=== PATIENT | male | born 1960 | race Caucasian/White ===

== ENCOUNTER 2016-12-09 05:08 | Inpatient (IN) | payer OTHER ==
[~2016-12-09] VITALS: Ht 175.3 cm; Wt 110.9 kg
[2016-12-09] VITALS (16 sets, daily range): BP systolic 119–164; BP diastolic 78–107
[~2016-12-09 05:08] MED LIST: AMLODIPINE-BEN1 EAC2 PO; AMLODIPINE-BEN1 EACH PO; AMLODIPINE-VAL1 EAC3 PO; ATORVASTATIN CA80 MG PO; Aspirin E.C. PO; EFFIENT10 MG PO; ENDOCET 5-3251 EACH PO; LIPITOR80 MG PO; LOPRESSOR25 MG PO; NITROSTAT0.4 MG SL; PREDNISONE20 MG PO
[2016-12-09 05:31] LABS: POTASSIUM 4.6 mEq/L (3.7-5.4)
[2016-12-09 06:06] LABS: TROP-I INTERPRETATION NEGATIVE; TROPONIN-I 0.02 ng/mL (0.0-0.30)
[2016-12-09 06:13] LABS: AMYLASE 86 IU/L (1-118); CHLORIDE 110 mEq/L (99-109); POTASSIUM 3.3 mEq/L (3.7-5.4); SODIUM 142 mEq/L (136-147)
[2016-12-09 06:15] LABS: GLUCOSE 133 mg/dL (70-99)
[2016-12-09 06:16] LABS: ANION GAP 13 MEQ/L (2-14)
[2016-12-09 06:18] LABS: SERUM ETHYL ALCOHOL 10 mg/dL
[2016-12-09 06:19] LABS: GFR ESTIMATE (CALCULATED) > 59 mL/min/
[2016-12-09 06:20] LABS: UREA NITROGEN (BUN) 17 mg/dL (9-23)
[2016-12-09 06:22] LABS: LIPASE 46 U/L (1.0-51.0)
[2016-12-09 06:33] LABS: INTER. NORMALIZED RATIO 0.9; PROTHROMBIN TIME 9.5 SEC (10.2-12.9); PTT 28.1 SEC (25-37)
[2016-12-09 08:12] LABS: EOSINOPHIL (%) 3.8 % (0-5); EOSINOPHIL COUNT 0.2 K/uL (0-0.3); HEMATOCRIT 46.9 % (38.0-50.0); IMMATURE GRANULOCYTE (%) 0.7 % (0.0-0.7); INSTRUMENT ABS NEUTROPHIL CT 3.3 K/uL; LYMPHOCYTE COUNT 1.9 K/uL (1.0-2.8); MCHC 34.5 G/DL (30.0-36.0); MCV 89.8 FL (86-99); MONOCYTE (%) 11.6 % (3-12); MONOCYTE COUNT 0.7 K/uL (0-0.8); NEUTROPHIL (%) 52.9 % (45-76); NEUTROPHIL COUNT 3.3 K/uL (1.8-6.4); PLATELET COUNT 174 K/uL (156-360); RBC DIS.WIDTH-CV 12.9 % (11.8-14.6); RBC DIS.WIDTH-SD 42.7 % (39-53); RED BLOOD COUNT 5.22 M/uL (4.00-5.50); WHITE BLOOD COUNT 6.1 K/uL (4.1-10.2)
[2016-12-09 10:17] LABS: METH RESISTANT S AUREUS PCR NEGATIVE (NEGATIVE); PROBE CHECK PASS; SPECIMEN PROCESSING CONTROL PASS
[2016-12-09 14:07] LABS: CREATINE KINASE 693 IU/L (1-294); HDL CHOLESTEROL 45 MG/DL (Desirable>=40); LDL CHOLESTEROL 104 mg/dL (Desirable<100); NON-HDL CHOLESTEROL 149 mg/dL (Desirable<160); TOTAL CHOLESTEROL 194 mg/dL (Desirable<200); TOTAL CK 693 IU/L (1-294); TRIGLYCERIDES 224 MG/DL (Normal: <150)
[2016-12-09 14:12] LABS: TROP-I INTERPRETATION POSITIVE; TROPONIN-I 23.34 ng/mL (0.0-0.30)
[2016-12-09 14:22] LABS: Estimated Average Glucose 108 mg/dL (70-123); HEMOGLOBIN A1c (GLYCOHEMOGLOB) 5.4 % HGB (Below 5.7)
[2016-12-09 15:03] LABS: CK-MB 110.4 ng/mL (0.0-4.9)
[2016-12-10] VITALS (21 sets, daily range): BP systolic 104–153; BP diastolic 67–91
[2016-12-10 01:05] LABS: CREATINE KINASE 526 IU/L (1-294); TOTAL CK 526 IU/L (1-294)
[2016-12-10 01:07] LABS: TROP-I INTERPRETATION POSITIVE
[2016-12-10 01:11] LABS: CK-MB 49.8 ng/mL (0.0-4.9)
[2016-12-10 05:48] LABS: EOSINOPHIL (%) 1.9 % (0-5); EOSINOPHIL COUNT 0.2 K/uL (0-0.3); HEMATOCRIT 45.7 % (38.0-50.0); IMMATURE GRANULOCYTE (%) 0.3 % (0.0-0.7); INSTRUMENT ABS NEUTROPHIL CT 6.4 K/uL; LYMPHOCYTE COUNT 1.4 K/uL (1.0-2.8); MCHC 33.5 G/DL (30.0-36.0); MCV 89.6 FL (86-99); MEAN PLAT.VOLUME 9.9 uM^3 (9.0-12.4); MONOCYTE (%) 12.1 % (3-12); MONOCYTE COUNT 1.1 K/uL (0-0.8); NEUTROPHIL (%) 70.6 % (45-76); NEUTROPHIL COUNT 6.4 K/uL (1.8-6.4); PLATELET COUNT 159 K/uL (156-360); RBC DIS.WIDTH-CV 12.9 % (11.8-14.6); RBC DIS.WIDTH-SD 42.4 % (39-53); WHITE BLOOD COUNT 9.1 K/uL (4.1-10.2)
[2016-12-10 06:18] LABS: ANION GAP 10 MEQ/L (2-14); CHLORIDE 103 MEQ/L (99-109); GFR ESTIMATE (CALCULATED) > 59 mL/min/; GLUCOSE 101 mg/dL (70-99); POTASSIUM 3.9 MEQ/L (3.7-5.4); SAMPLE HEMOLYSIS CHECK 0; SAMPLE ICTERIC CHECK 0; SAMPLE LIPEMIA CHECK 0; SODIUM 138 MEQ/L (136-147); UREA NITROGEN (BUN) 12 mg/dL (9-23)
[2016-12-10 12:50] LABS: CREATINE KINASE 230 IU/L (1-294); TOTAL CK 230 IU/L (1-294)
[2016-12-11] VITALS (10 sets, daily range): BP systolic 99–132; BP diastolic 64–96
[2016-12-11] MEDS ORDERED: LOPRESSOR25 MG PO (11:51)
[2016-12-11] MEDS ORDERED: LIPITOR80 MG PO (11:51)
[2016-12-11] MEDS ORDERED: EFFIENT10 MG PO (11:51)
[2016-12-11] MEDS ORDERED: Aspirin E.C. PO (11:51)
[2016-12-11] MEDS ORDERED: NITROSTAT0.4 MG SL (11:51)
[2016-12-11] MEDS ORDERED: VALSARTAN160 MG PO (11:51)
== END 2016-12-11 12:50 | disposition home or self-care (01) | DRG 246 ==
LOC: EME 05:08 → ENRESERV 05:31 → EME 06:31 → SDC 06:41 → ENRESERV 07:40 → 4WEST 08:36
PROVIDERS: Emergency Medicine; Internal Medicine Interventional Cardiology
PROC: 4A023N7 Measurement of Cardiac Sampling and Pressure, Left Heart, Percutaneous Approach (ICD-10-PCS; principal; 2016-12-09)
PROC: 02703ZZ Dilation of Coronary Artery, One Artery, Percutaneous Approach (ICD-10-PCS; principal; 2016-12-09)
PROC: B2131ZZ Fluoroscopy of Multiple Coronary Artery Bypass Grafts using Low Osmolar Contrast (ICD-10-PCS; principal; 2016-12-09)
PROC: 5A2204Z Restoration of Cardiac Rhythm, Single (ICD-10-PCS; principal; 2016-12-09)
PROC: 027135Z Dilation of Coronary Artery, Two Arteries with Two Drug-eluting Intraluminal Devices, Percutaneous Approach (ICD-10-PCS; principal; 2016-12-09)
PROC: B2181ZZ Fluoroscopy of Left Internal Mammary Bypass Graft using Low Osmolar Contrast (ICD-10-PCS; principal; 2016-12-09)
PROC: B2111ZZ Fluoroscopy of Multiple Coronary Arteries using Low Osmolar Contrast (ICD-10-PCS; principal; 2016-12-09)
PROC: B2151ZZ Fluoroscopy of Left Heart using Low Osmolar Contrast (ICD-10-PCS; 2016-12-09)
DX: I21.19 ST elevation (STEMI) myocardial infarction involving other coronary artery of inferior wall (principal); I49.01 Ventricular fibrillation; I46.9 Cardiac arrest, cause unspecified; I25.10 Atherosclerotic heart disease of native coronary artery without angina pectoris; F17.210 Nicotine dependence, cigarettes, uncomplicated; I10 Essential (primary) hypertension; Q25.0 Patent ductus arteriosus; E78.5 Hyperlipidemia, unspecified; E66.9 Obesity, unspecified; I34.0 Nonrheumatic mitral (valve) insufficiency; I45.10 Unspecified right bundle-branch block; I25.2 Old myocardial infarction; Z95.1 Presence of aortocoronary bypass graft; Z83.3 Family history of diabetes mellitus
CPT/HCPCS: 71010; 80047; 80048; 80061; 81003; 82150; 82550; 82550 91; 82553; 83036; 83690; 84484; 85025; 85347; 85610; 85730; 86850; 86900; 86901; 87641; 93005; 93306; 94799; 99281; 99285; C1725; C1769; C1874; C1887; C1894; G0480; J0282; J1644; J2250; J3010; J3246; J7050